=== PATIENT | female | born 1990 | race Caucasian/White ===

== ENCOUNTER 2018-10-27 23:33 | Emergency (ER) | payer OTHER ==
[~2018-10-27] VITALS: Ht 170.2 cm; Wt 47.6 kg
[2018-10-28 00:04] VITALS: BP 109/67
--- NOTE | 2018-10-28 00:07 | NUR ---
PT BIBFRIEND C/C HEADACHE AND FEELING LIKE PASSING OUT SINCE 6PM, +N/-V. AOX4. NAD NOTED. RESP EVEN AND UNLABORED. PT ON MONITOR IN BED 5 WITH FRIEND AT BEDSIDE. WILL CONTINUE TO MONITOR.
[2018-10-28] MEDS ORDERED: KETOROLAC TROMETHAMINE INJ 30 MG/ML VIAL IV ONE ×2 (01:00)
[2018-10-28] MEDS ORDERED: IV NS 0.9% 1,000 ML BAG IV ONE ×2 (01:00)
[2018-10-28] MEDS ORDERED: METOCLOPRAMIDE HCL 10 MG/2 ML VIAL IV ONE ×2 (01:00)
[2018-10-28] MEDS ORDERED: diphenhydrAMINE HCL 50 MG/ML VIAL IV ONE ×2 (01:00)
--- NOTE | 2018-10-28 01:01 | NUR ---
BLOOD DRAWN AND GIVEN TO LAB
[2018-10-28 01:07] LABS: BASOPHILS # (AUTO) 0.1 /CMM (0.0-0.2); BASOPHILS % (AUTO) 0.6 % (0.0-2.0); EOSINOPHILS % (AUTO) 2.4 % (0.0-6.0); HEMATOCRIT 39 % (33-45); HEMOGLOBIN 13.2 g/dL (11.5-14.8); LYMPHOCYTES # (AUTO) 2.2 /CMM (0.8-4.8); LYMPHOCYTES % (AUTO) 21.4 % (20.0-44.0); MEAN CORPUSCULAR HGB CONC 33 g/dl (31.0-36.0); MEAN CORPUSCULAR VOLUME 79 fL (82-100); MONOCYTES # (AUTO) 0.6 /CMM (0.1-1.30); MONOCYTES % (AUTO) 6.3 % (2.0-12.0); NEUTROPHILS # (AUTO) 7.1 /CMM (1.8-8.9); NEUTROPHILS % (AUTO) 69.3 % (43.0-81.0); PLATELET COUNT (AUTO) 207 /CMM (150-450); RED BLOOD CELL COUNT(AUTO) 4.98 MIL/uL (4.0-5.2); WHITE BLOOD COUNT (AUTO) 10.2 K/uL (4.3-11.0)
[2018-10-28] MEDS ORDERED: PROCHLORPERAZINE EDISYLATE 10 MG/2 ML VIAL ONE (01:07)
[2018-10-28] MEDS ORDERED: diphenhydrAMINE HCL 50 MG/ML VIAL ONE (01:07)
[2018-10-28] MEDS ORDERED: KETOROLAC TROMETHAMINE 15 MG/ML VIAL ONE (01:07)
[2018-10-28] MEDS ORDERED: PROCHLORPERAZINE EDISYLATE 10 MG/2 ML VIAL IVP ONE (01:30)
--- NOTE | 2018-10-28 01:45 | NUR ---
IV removed. Catheter intact and site benign. Pressure and 4x4 applied to site. No bleeding noted.Patient discharged to home in stable condition. Written and verbal after care instructions given. Patient verbalizes understanding of instruction. PT AMBULATORY WITH STEADY GAIT.
== END 2018-10-28 02:04 | disposition home or self-care (01) ==
LOC: ER 23:38
DX: R51 Headache (principal); R42 Dizziness and giddiness; R00.2 Palpitations
CPT/HCPCS: 36415; 85025; 96361; 96374; 96375; 99283; J0780; J1200; J1885; J7030